=== PATIENT | female | born 1960 | race Hispanic/Latino ===

== ENCOUNTER 2017-06-15 08:00 | Outpatient (CLI) | payer OTHER, SELFPAY | END 2017-06-15 08:01 | disposition home or self-care (01) | LOC: BICMAMMO 08:00 | PROVIDERS: ATTEND Nurse Practitioner Family | DX: Z12.31 Encounter for screening mammogram for malignant neoplasm of breast (principal) | CPT/HCPCS: 77067; G0202 ==

== ENCOUNTER 2021-10-07 08:03 | Outpatient (CLI) | payer BC | END 2021-10-07 08:04 | disposition home or self-care (01) | LOC: BICMAMMO 08:03 | PROVIDERS: ATTEND Obstetrics & Gynecology | DX: Z12.31 Encounter for screening mammogram for malignant neoplasm of breast (principal); Z80.3 Family history of malignant neoplasm of breast | CPT/HCPCS: 77063; 77067 ==

== ENCOUNTER 2023-04-19 20:23 | Emergency (ER) | payer BC ==
[2023-04-19 20:57] LABS: #Eosinphils 0.1 thou/uL (0.0-0.7); #Monocytes 0.4 thou/uL (0.11-0.59); #Neutrophils 15.5 thou/uL (1.40-6.50); %Basophils 0.2 % (0.0-1.0); %Eosinophils 0.5 % (0.0-10.0); %Lymphocytes 4.6 % (21.0-51.0); %Monocytes 2.4 % (0.0-10.0); %Neutrophils 91.9 % (42.0-75.0); Hematocrit 42.1 % (36.0-47.0); Hemoglobin 14.8 g/dL (12.0-16.0); Mean Corpuscular HGB CONC 35.2 g/dL (32.0-36.0); Mean Corpuscular Hemoglobin 34.2 pg (27.0-31.0); Mean Corpuscular Volume 97.2 fl (78.0-98.0); Mean Platelet Volume 10.7 fL (7.4-10.4); Platelet Count 308 10x3/uL (130-400); RBC Distribution Width 11.5 % (11.5-14.5); Red Blood Cell (RBC) Count 4.33 mill/uL (4.20-5.40); White Blood Cell (WBC) Count 16.9 10x3/uL (4.8-10.8)
[2023-04-19 21:28] LABS: Troponin I Less than 0.010 ng/mL (< 0.028)
[2023-04-19 21:33] LABS: ALT (SGPT) 39 U/L (8-55); AST (SGOT) 37 U/L (5-34); Albumin 4.8 g/dL (3.4-4.8); Alkaline Phosphatase 92 U/L (40-110); Anion Gap 13 mmol/L (10-20); BUN (Urea Nitrogen) 10 mg/dL (9.8-20.1); Bilirubin, Total 0.4 mg/dL (0.2-1.2); Calc. Creatinine Clearance 0 mL/min (70-130); Calcium 9.5 mg/dL (7.8-10.44); Carbon Dioxide 27 mmol/L (23-31); Chloride 100 mmol/L (98-107); Estimated GFR 76; Globulin 2.9 g/dL (2.4-3.5); Glucose 202 mg/dL (80-115); Potassium 3.4 mmol/L (3.5-5.1); Protein, Total 7.7 g/dL (5.8-8.1); Sodium 137 mmol/L (136-145)
[2023-04-19 22:22] LABS: SARS-CoV-2 NAA Rapid Test Not Detected (NotDetected)
[2023-04-19 22:32] LABS: Bilirubin Negative (Negative); Blood, Urine Negative (Negative); Glucose, Urine (Dipstick) Negative (Negative); Ketone, Urine Negative (Negative); Leukocyte Small (Negative); Nitrite Negative (Negative); Protein, Urine (Dipstick) Negative (Neg-Trace); Urobilinogen 0.2 mg/dL (Less than 2); pH, Urine 7.5 (5.0-9.0)
[2023-04-19 22:41] LABS: Clarity Clear (Clear); Specific Gravity, Urine 1.005 (1.002-1.036)
[2023-04-19 22:42] LABS: Bacteria/HPF Rare-Few HPF (None Seen); CAUTI Indications for Culture Dysuria,urgency,freq; RBC/HPF 0-3 HPF (0-3); Squamous Epithelial 0-3 HPF (0-3); WBC/HPF 0-3 HPF (0-3)
[2023-04-19 22:44] LABS: Urine Culture Reflex No No
== END 2023-04-19 23:58 | disposition home or self-care (01) ==
LOC: ERS 20:23
DX: R00.2 Palpitations (principal); E86.0 Dehydration; E11.9 Type 2 diabetes mellitus without complications; E78.5 Hyperlipidemia, unspecified; I10 Essential (primary) hypertension; Z79.899 Other long term (current) drug therapy; Z20.822 Contact with and (suspected) exposure to COVID-19; Z79.84 Long term (current) use of oral hypoglycemic drugs
CPT/HCPCS: 71045; 80053; 81001; 83605; 83690; 83880; 84443; 84484; 85025; 85379; 87040; 93005; 96360; 96361

== ENCOUNTER 2023-12-05 20:14 | Inpatient (IN) | payer BC, SELFPAY ==
[~2023-12-05 20:14] MED LIST: Iopamidol 370 76% 100 ML VIAL ONE
[2023-12-05] MEDS ORDERED: Ondansetron PF 4 MG/2 ML Vial ONE (22:16)
[2023-12-05] MEDS ORDERED: Ketorolac Tromethamine 30 MG (1 mL) VIAL ONE (22:16)
[2023-12-05 22:44] LABS: #Basophils 0.03 10x3/uL (0.0-0.2); #Eosinphils Less than 0.03 10x3/uL (0.0-0.7); %Basophils 0.3 % (0.0-1.0); %Eosinophils 0.2 % (0.0-10.0); %Lymphocytes 12.4 % (21.0-51.0); %Neutrophils 81.7 % (42.0-75.0); Hematocrit 36.8 % (36.0-47.0); Hemoglobin 12.9 g/dL (12.0-16.0); Mean Corpuscular HGB CONC 35.1 g/dL (32.0-36.0); Mean Corpuscular Hemoglobin 33.6 pg (27.0-31.0); Mean Corpuscular Volume 95.8 fL (78.0-98.0); Mean Platelet Volume 10.7 fL (7.4-10.4); Platelet Count 280 10x3/uL (130-400); RBC Distribution Width 11.6 % (11.5-14.5); Red Blood Cell (RBC) Count 3.84 mill/uL (4.20-5.40)
[2023-12-05 23:02] LABS: ALT (SGPT) 522 U/L (8-55); AST (SGOT) 811 U/L (5-34); Albumin 3.9 g/dL (3.4-4.8); Alkaline Phosphatase 168 U/L (40-110); Anion Gap 16 mmol/L (10-20); BUN (Urea Nitrogen) 13 mg/dL (9.8-20.1); Bilirubin, Total 1.8 mg/dL (0.2-1.2); Calc. Creatinine Clearance 0 mL/min (70-130); Calcium 9.5 mg/dL (7.8-10.44); Carbon Dioxide 22 mmol/L (23-31); Chloride 103 mmol/L (98-107); Estimated GFR 93; Globulin 3.1 g/dL (2.4-3.5); Glucose 196 mg/dL (80-115); Lipase 30 U/L (8-78); Sodium 137 mmol/L (136-145)
[2023-12-05 23:07] LABS: Troponin I Less than 0.010 ng/mL (< 0.028)
[2023-12-06] MEDS ORDERED: Sodium Chloride 0.9% 100 ML ONE (00:22)
[2023-12-06] MEDS ORDERED: Piperacillin/Tazobactam 3.375 GM VIAL ONE (00:22)
[2023-12-06 02:03] LABS: Bilirubin Negative (Negative); Blood, Urine Negative (Negative); CAUTI Indications for Culture Fever or rigors; Clarity Clear (Clear); Glucose, Urine (Dipstick) Normal (Negative); Ketone, Urine Negative (Negative); Leukocyte 500 Leu/uL (Negative); Nitrite Negative (Negative); Protein, Urine (Dipstick) Negative (Neg-Trace); RBC/HPF 0-3 HPF (0-3); Renal Epithelial 0-3 HPF (None Seen); Specific Gravity, Urine 1.048 (1.002-1.036); Urobilinogen Normal mg/dL (Less than 2); WBC/HPF 21-50 HPF (0-3); pH, Urine 6.5 (5.0-9.0)
[2023-12-06 02:04] LABS: Bacteria/HPF 1+ HPF (None Seen); Urine Culture Reflex Yes Yes
[2023-12-06] MEDS: Sodium Chloride 0.9% 1,000 ML IV SCH (02:50)
[2023-12-06] MEDS ORDERED: Senokot S 8.6-50 MG TAB PO PRN (08:21)
[2023-12-06] MEDS ORDERED: Dextrose 5% in Water 1,000 ML IV PRN (08:30)
[2023-12-06] MEDS ORDERED: Glucagon 1 MG/ML KIT IM PRN (08:30)
[2023-12-06] MEDS ORDERED: Piperacillin/Tazobactam 3.375 GM in Sodium Chloride 0.9% 100 ML IVPB SCH (08:30)
[2023-12-06] MEDS ORDERED: Dextrose 50% Abboject 50 ML SYRINGE SLOW IVP PRN (08:30)
[2023-12-06] MEDS ORDERED: Ondansetron ODT 4 MG TAB PO PRN (08:33)
[2023-12-06 09:03] LABS: #Basophils Less than 0.03 10x3/uL (0.0-0.2); %Basophils 0.2 % (0.0-1.0); %Eosinophils 1.2 % (0.0-10.0); %Lymphocytes 14.2 % (21.0-51.0); %Monocytes 4.7 % (0.0-10.0); %Neutrophils 79.5 % (42.0-75.0); Hematocrit 35.1 % (36.0-47.0); Mean Corpuscular HGB CONC 34.2 g/dL (32.0-36.0); Mean Corpuscular Volume 99.4 fL (78.0-98.0); Mean Platelet Volume 10.9 fL (7.4-10.4); Platelet Count 258 10x3/uL (130-400); RBC Distribution Width 11.9 % (11.5-14.5); Red Blood Cell (RBC) Count 3.53 mill/uL (4.20-5.40)
[2023-12-06 09:10] LABS: Lactic Acid 1.3 mmol/L (0.5-2.2)
[2023-12-06 09:28] LABS: ALT (SGPT) 683 U/L (8-55); AST (SGOT) 754 U/L (5-34); Albumin 3.3 g/dL (3.4-4.8); Alkaline Phosphatase 187 U/L (40-110); Anion Gap 15 mmol/L (10-20); BUN (Urea Nitrogen) 11 mg/dL (9.8-20.1); Bilirubin, Total 3.2 mg/dL (0.2-1.2); Calc. Creatinine Clearance 100 mL/min (70-130); Calcium 8.6 mg/dL (7.8-10.44); Carbon Dioxide 20 mmol/L (23-31); Chloride 108 mmol/L (98-107); Estimated GFR 94; Glucose 161 mg/dL (80-115); Magnesium 1.8 mg/dL (1.6-2.6); Potassium 3.6 mmol/L (3.5-5.1); Protein, Total 6.3 g/dL (5.8-8.1); Sodium 139 mmol/L (136-145)
[2023-12-06] MEDS: Lactated Ringer's 1,000 ML IV SCH (09:47)
[2023-12-06] MEDS: Piperacillin/Tazobactam 3.375 GM in Sodium Chloride 0.9% 100 ML IVPB SCH (09:47)
[2023-12-06] MEDS: Famotidine/PF 20 mg/2ml Vial SLOW IVP SCH (09:48)
[2023-12-06] MEDS ORDERED: Ketorolac Tromethamine 30 MG (1 mL) VIAL IVP PRN (10:43)
[2023-12-06] MEDS: Magnesium 2 GM/50 ML(in water) 2 GM in Premix 1 BAG IVPB SCH (11:52)
[2023-12-06] MEDS ORDERED: Vancomycin 2 GM in Sodium Chloride 0.9% 500 ML IVPB SCH (19:45)
[2023-12-06] MEDS: Vancomycin (BATCH) 2 GM in Premix 1 BAG IVPB SCH (22:07)
[2023-12-07 05:16] LABS: #Basophils Less than 0.03 10x3/uL (0.0-0.2); %Basophils 0.4 % (0.0-1.0); %Eosinophils 4.9 % (0.0-10.0); %Lymphocytes 20.5 % (21.0-51.0); %Monocytes 4.9 % (0.0-10.0); %Neutrophils 68.9 % (42.0-75.0); Hematocrit 33.3 % (36.0-47.0); Hemoglobin 11.3 g/dL (12.0-16.0); Mean Corpuscular HGB CONC 33.9 g/dL (32.0-36.0); Mean Corpuscular Hemoglobin 33.5 pg (27.0-31.0); Mean Corpuscular Volume 98.8 fL (78.0-98.0); Mean Platelet Volume 10.9 fL (7.4-10.4); Platelet Count 239 10x3/uL (130-400); Red Blood Cell (RBC) Count 3.37 mill/uL (4.20-5.40)
[2023-12-07 05:34] LABS: Vancomycin, Random 26.7 ug/mL (See Comment)
[2023-12-07 05:36] LABS: Phosphorus 2.5 mg/dL (2.3-4.7)
[2023-12-07 05:43] LABS: ALT (SGPT) 560 U/L (8-55); AST (SGOT) 349 U/L (5-34); Alkaline Phosphatase 194 U/L (40-110); Anion Gap 11 mmol/L (10-20); BUN (Urea Nitrogen) 6 mg/dL (9.8-20.1); Bilirubin, Total 2.1 mg/dL (0.2-1.2); Calc. Creatinine Clearance 98 mL/min (70-130); Calcium 8.3 mg/dL (7.8-10.44); Carbon Dioxide 21 mmol/L (23-31); Chloride 114 mmol/L (98-107); Estimated GFR 93; Globulin 2.9 g/dL (2.4-3.5); Glucose 148 mg/dL (80-115); Potassium 3.4 mmol/L (3.5-5.1); Protein, Total 5.9 g/dL (5.8-8.1); Sodium 143 mmol/L (136-145)
[2023-12-07] MEDS: Vancomycin 1 GM in Premix 1 BAG IVPB SCH (09:22)
[2023-12-07] MEDS ORDERED: Iopamidol 30 ML ONE (10:18)
[2023-12-07] MEDS ORDERED: Indomethacin 50 MG SUPP ONE (10:19)
[2023-12-07] MEDS ORDERED: fentaNYL PF 100 MCG/2 ML SYRINGE ONE (10:26)
[2023-12-07] MEDS ORDERED: PROPOFOL 20 ML ONE (10:26)
[2023-12-07] MEDS ORDERED: Rocuronium Bromide 10 MG/ML (10ML VIAL) ONE (10:26)
[2023-12-07] MEDS ORDERED: Midazolam HCl 2 mg/2 ml Vial ONE (10:27)
[2023-12-07] MEDS ORDERED: Lidocaine 1% PF 5 ML VIAL ONE (11:02)
[2023-12-07] MEDS ORDERED: Ondansetron PF 4 MG/2 ML Vial ONE ×2 (11:18→12:58)
[2023-12-07] MEDS ORDERED: Dexamethasone 4 mg/ml Vial ONE (11:18)
[2023-12-07] MEDS ORDERED: Glucagon 1 MG/ML KIT ONE (11:31)
[2023-12-07] MEDS ORDERED: Ketamine In 0.9 % NaCl 50 MG/5 ML SYRINGE ONE (12:17)
[2023-12-07] MEDS ORDERED: fentaNYL 50 mcg/mL 1 mL Vial ONE (12:26)
[2023-12-07] MEDS ORDERED: SUGAMMADEX SODIUM 200 MG/2 ML VIAL ONE (12:52)
[2023-12-07] MEDS: Potassium Chloride 20 MEQ in Premix 1 BAG IVPB SCH (15:27)
[2023-12-07] MEDS: Potassium Chloride 20 MEQ TAB PO SCH (15:29)
[2023-12-07] MEDS: HYDROcodone/Acetaminophen 10/325 mg Tablet PO PRN (18:27)
[2023-12-08] MEDS: Insulin Regular, Human 100 UNIT/ML 10 ML VIAL SC PRN ×2 (00:05→06:01)
[2023-12-08] MEDS: Ondansetron PF 4 MG/2 ML Vial IVP PRN (02:32)
[2023-12-08 05:36] LABS: #Basophils Less than 0.03 10x3/uL (0.0-0.2); #Eosinphils Less than 0.03 10x3/uL (0.0-0.7); %Basophils 0.1 % (0.0-1.0); %Lymphocytes 6.3 % (21.0-51.0); %Monocytes 4.4 % (0.0-10.0); %Neutrophils 88.6 % (42.0-75.0); Hematocrit 40.4 % (36.0-47.0); Hemoglobin 13.6 g/dL (12.0-16.0); Mean Corpuscular HGB CONC 33.7 g/dL (32.0-36.0); Mean Corpuscular Hemoglobin 33.6 pg (27.0-31.0); Mean Corpuscular Volume 99.8 fL (78.0-98.0); Mean Platelet Volume 11.1 fL (7.4-10.4); Platelet Count 262 10x3/uL (130-400); RBC Distribution Width 12.3 % (11.5-14.5); Red Blood Cell (RBC) Count 4.05 mill/uL (4.20-5.40)
[2023-12-08 05:54] LABS: Vancomycin, Random 23.3 ug/mL (See Comment)
[2023-12-08 06:04] LABS: ALT (SGPT) 408 U/L (8-55); AST (SGOT) 172 U/L (5-34); Albumin 2.9 g/dL (3.4-4.8); Alkaline Phosphatase 177 U/L (40-110); Anion Gap 15 mmol/L (10-20); BUN (Urea Nitrogen) 15 mg/dL (9.8-20.1); Calc. Creatinine Clearance 49 mL/min (70-130); Calcium 8.2 mg/dL (7.8-10.44); Carbon Dioxide 18 mmol/L (23-31); Chloride 110 mmol/L (98-107); Estimated GFR 40; Globulin 2.9 g/dL (2.4-3.5); Glucose 245 mg/dL (80-115); Potassium 4.1 mmol/L (3.5-5.1); Protein, Total 5.8 g/dL (5.8-8.1); Sodium 139 mmol/L (136-145)
[2023-12-08] MEDS: Cefepime 2 GM in Sodium Chloride 0.9% 100 ML IVPB SCH (08:42)
[2023-12-08] MEDS: Lactated Ringer's 1,000 ML IV SCH ×2 (08:43→16:37)
[2023-12-08] MEDS: Bisacodyl 10 MG SUPP PR SCH (17:16)
[2023-12-08] MEDS: Ampicillin 2 GM in Sodium Chloride 0.9% 100 ML IVPB SCH (19:42)
[2023-12-08] MEDS ORDERED: Cefepime 1 GM in Sodium Chloride 0.9% 100 ML IVPB SCH (21:00)
[2023-12-09 03:47] LABS: Bacteria/HPF 1+ HPF (None Seen); Bilirubin Negative (Negative); Blood, Urine Trace (Negative); Clarity Turbid (Clear); Glucose, Urine (Dipstick) 100 mg/dL (Negative); Ketone, Urine Negative (Negative); Leukocyte 25 Leu/uL (Negative); Nitrite Negative (Negative); Protein, Urine (Dipstick) 70 mg/dL (Neg-Trace); Specific Gravity, Urine 1.013 (1.002-1.036); Transitional Epithelial 0-3 HPF (None Seen); Urobilinogen Normal mg/dL (Less than 2)
[2023-12-09 07:04] LABS: Hematocrit 35.5 % (36.0-47.0); Hemoglobin 12.3 g/dL (12.0-16.0); Mean Corpuscular HGB CONC 34.6 g/dL (32.0-36.0); Mean Corpuscular Hemoglobin 34.3 pg (27.0-31.0); Mean Corpuscular Volume 98.9 fL (78.0-98.0); Mean Platelet Volume 11.4 fL (7.4-10.4); Platelet Count 225 10x3/uL (130-400); RBC Distribution Width 12.6 % (11.5-14.5); Red Blood Cell (RBC) Count 3.59 mill/uL (4.20-5.40)
[2023-12-09 07:50] LABS: Anisocytosis SLIGHT = 6-15 cells HPF (0-5); Band 10 % (5-11); Burr Cells SLIGHT = 2-5 cells HPF (0-1); Monocytes 4 % (0-10); Neutrophil 86 % (42-75); Platelet Adequacy Comment Platelets Normal
[2023-12-09] MEDS ORDERED: Vancomycin 1 GM in Premix 1 BAG IVPB SCH (09:00)
[2023-12-09] MEDS: Bisacodyl 10 MG SUPP PR SCH ×2 (09:26→14:17)
[2023-12-09] MEDS: Famotidine 20 MG TAB PO SCH (09:27)
[2023-12-09 10:31] LABS: Anion Gap 16 mmol/L (10-20); BUN (Urea Nitrogen) 32 mg/dL (9.8-20.1); Calc. Creatinine Clearance 16 mL/min (70-130); Calcium 7.7 mg/dL (7.8-10.44); Carbon Dioxide 17 mmol/L (23-31); Chloride 106 mmol/L (98-107); Estimated GFR 10; Glucose 220 mg/dL (80-115); Potassium 4.3 mmol/L (3.5-5.1); Sodium 135 mmol/L (136-145)
[2023-12-09] MEDS ORDERED: GASTROGRAFIN 30 ML BOT ONE (11:37)
[2023-12-09] MEDS: Lactated Ringer's 1,000 ML IV SCH ×2 (13:16→13:18)
[2023-12-09] MEDS: Albumin 25% 25 GM (100 mL) BOT IVPB SCH (13:21)
[2023-12-09] MEDS ORDERED: Lactated Ringer's 1,000 ML IV SCH (16:00)
[2023-12-09 16:12] LABS: Vancomycin, Random 21.9 ug/mL (See Comment)
[2023-12-09 16:15] LABS: ALT (SGPT) 209 U/L (8-55); AST (SGOT) 59 U/L (5-34); Albumin 2.4 g/dL (3.4-4.8); Alkaline Phosphatase 128 U/L (40-110); Bilirubin, Direct 0.4 mg/dL (0.1-0.3); Bilirubin, Total 0.8 mg/dL (0.2-1.2); Protein, Total 5.7 g/dL (5.8-8.1)
[2023-12-09] MEDS: Sodium Chloride 0.9% 1,000 ML IV SCH (17:34)
[2023-12-09] MEDS ORDERED: Albumin 25% 25 GM (100 mL) BOT IVPB SCH (18:00)
[2023-12-09] MEDS: Racepinephrine 2.25% 0.5 ML NEB ONE (20:35)
[2023-12-10] MEDS: Dicyclomine 10 MG CAP PO SCH (00:01)
[2023-12-10] MEDS: Racepinephrine 2.25% 0.5 ML NEB NEB PRN (00:35)
[2023-12-10] MEDS ORDERED: fentaNYL 50 mcg/mL 1 mL Vial SLOW IVP PRN (00:35)
[2023-12-10] MEDS: Ipratropium/Albuterol 3 ML NEB ONE (01:01)
[2023-12-10 01:57] LABS: #Basophils 0.03 10x3/uL (0.0-0.2); #Eosinphils Less than 0.03 10x3/uL (0.0-0.7); %Basophils 0.1 % (0.0-1.0); %Lymphocytes 5.4 % (21.0-51.0); %Monocytes 3.7 % (0.0-10.0); %Neutrophils 89.1 % (42.0-75.0); Hematocrit 30.9 % (36.0-47.0); Hemoglobin 10.4 g/dL (12.0-16.0); Mean Corpuscular HGB CONC 33.7 g/dL (32.0-36.0); Mean Corpuscular Hemoglobin 33.2 pg (27.0-31.0); Mean Corpuscular Volume 98.7 fL (78.0-98.0); Mean Platelet Volume 11.2 fL (7.4-10.4); Platelet Count 179 10x3/uL (130-400); RBC Distribution Width 12.8 % (11.5-14.5); Red Blood Cell (RBC) Count 3.13 mill/uL (4.20-5.40)
[2023-12-10 01:58] LABS: #Basophils 0.03 10x3/uL (0.0-0.2); #Eosinphils Less than 0.03 10x3/uL (0.0-0.7); %Basophils 0.1 % (0.0-1.0); %Lymphocytes 5.2 % (21.0-51.0); %Monocytes 3.5 % (0.0-10.0); %Neutrophils 89.2 % (42.0-75.0); Hematocrit 30.3 % (36.0-47.0); Hemoglobin 10.2 g/dL (12.0-16.0); Mean Corpuscular HGB CONC 33.7 g/dL (32.0-36.0); Mean Corpuscular Hemoglobin 33.9 pg (27.0-31.0); Mean Corpuscular Volume 100.7 fL (78.0-98.0); Mean Platelet Volume 11.1 fL (7.4-10.4); Platelet Count 180 10x3/uL (130-400); RBC Distribution Width 12.8 % (11.5-14.5); Red Blood Cell (RBC) Count 3.01 mill/uL (4.20-5.40)
[2023-12-10 02:12] LABS: Lactic Acid 2.2 mmol/L (0.5-2.2)
[2023-12-10 02:16] LABS: ALT (SGPT) 145 U/L (8-55); AST (SGOT) 41 U/L (5-34); Albumin 2.5 g/dL (3.4-4.8); Alkaline Phosphatase 104 U/L (40-110); Anion Gap 20 mmol/L (10-20); BUN (Urea Nitrogen) 42 mg/dL (9.8-20.1); Bilirubin, Total 0.9 mg/dL (0.2-1.2); Calc. Creatinine Clearance 13 mL/min (70-130); Calcium 7.5 mg/dL (7.8-10.44); Carbon Dioxide 13 mmol/L (23-31); Chloride 104 mmol/L (98-107); Estimated GFR 8; Globulin 3.2 g/dL (2.4-3.5); Glucose 166 mg/dL (80-115); Potassium 3.7 mmol/L (3.5-5.1); Protein, Total 5.7 g/dL (5.8-8.1); Sodium 133 mmol/L (136-145)
[2023-12-10] MEDS: Furosemide 20 MG (2 mL) VIAL SLOW IVP SCH (02:30)
[2023-12-10 05:18] VITALS: BMI 34.9
[2023-12-10] MEDS: methylPREDNISolone Sod Succ/PF 125 MG/2 ML VIAL IVP SCH (06:34)
[2023-12-10] MEDS ORDERED: Furosemide 20 MG (2 mL) VIAL SLOW IVP SCH (09:00)
[2023-12-10] MEDS: Famotidine 20 MG TAB PO SCH (09:38)
[2023-12-10] MEDS: Bisacodyl 10 MG SUPP PR SCH (11:48)
[2023-12-10] MEDS: Ampicillin 2 GM in Sodium Chloride 0.9% 100 ML IVPB SCH (12:06)
[2023-12-10] MEDS: Sodium Bicarbonate 150 MEQ in Dextrose 5% in Water 1,000 ML IV SCH (12:47)
[2023-12-10 19:32] LABS: Anion Gap 23 mmol/L (10-20); BUN (Urea Nitrogen) 49 mg/dL (9.8-20.1); Calc. Creatinine Clearance 11 mL/min (70-130); Calcium 7.3 mg/dL (7.8-10.44); Carbon Dioxide 13 mmol/L (23-31); Chloride 105 mmol/L (98-107); Estimated GFR 7; Glucose 178 mg/dL (80-115); Sodium 136 mmol/L (136-145)
[2023-12-10] MEDS: Ipratropium/Albuterol 3 ML NEB NEB PRN (21:45)
[2023-12-11 05:01] LABS: Actual Bicarbonate (HCO3v) 21.8 mEq/L (22-28); Chloride (VBG) 100 mmol/L (98-106); Hematocrit-VBG 31 % (36.0-47.0); Hemoglobin (Hb) 10.5 g/dL (11.7-16.1); Sodium 137 mmol/L (133-146); pH (venous) 7.378 (7.32-7.43)
[2023-12-11 05:31] LABS: Hematocrit 27.8 % (36.0-47.0); Hemoglobin 9.5 g/dL (12.0-16.0); Mean Corpuscular HGB CONC 34.2 g/dL (32.0-36.0); Mean Corpuscular Hemoglobin 33.5 pg (27.0-31.0); Mean Corpuscular Volume 97.9 fL (78.0-98.0); Mean Platelet Volume 11.2 fL (7.4-10.4); Platelet Count 184 10x3/uL (130-400); Red Blood Cell (RBC) Count 2.84 mill/uL (4.20-5.40)
[2023-12-11 05:55] LABS: Anion Gap 20 mmol/L (10-20); BUN (Urea Nitrogen) 55 mg/dL (9.8-20.1); Calc. Creatinine Clearance 10 mL/min (70-130); Calcium 7.6 mg/dL (7.8-10.44); Carbon Dioxide 20 mmol/L (23-31); Chloride 102 mmol/L (98-107); Estimated GFR 6; Glucose 143 mg/dL (80-115); Lipase 30 U/L (8-78); Potassium 3.8 mmol/L (3.5-5.1); Sodium 138 mmol/L (136-145)
[2023-12-11 06:07] LABS: Band 5 % (5-11); Dohle Bodies SLIGHT; Lymphocytes 4 % (21-51); Monocytes 3 % (0-10); Neutrophil 88 % (42-75); Platelet Adequacy Comment Platelets Normal; Polychromasia SLIGHT = 2-3 cells HPF (0-2); Vacuoles SLIGHT
[2023-12-11] MEDS: Sodium Chloride 0.9% 1,000 ML IV SCH (09:00)
[2023-12-11] MEDS: Pantoprazole 40 MG VIAL IVP SCH (12:14)
[2023-12-12 04:02] LABS: #Basophils 0.06 10x3/uL (0.0-0.2); %Basophils 0.2 % (0.0-1.0); %Eosinophils 0.2 % (0.0-10.0); %Lymphocytes 3.6 % (21.0-51.0); %Monocytes 4.4 % (0.0-10.0); %Neutrophils 90.6 % (42.0-75.0); Hematocrit 29.9 % (36.0-47.0); Hemoglobin 10.1 g/dL (12.0-16.0); Mean Corpuscular HGB CONC 33.8 g/dL (32.0-36.0); Mean Corpuscular Hemoglobin 32.8 pg (27.0-31.0); Mean Corpuscular Volume 97.1 fL (78.0-98.0); Mean Platelet Volume 11.2 fL (7.4-10.4); Platelet Count 220 10x3/uL (130-400); RBC Distribution Width 13.3 % (11.5-14.5); Red Blood Cell (RBC) Count 3.08 mill/uL (4.20-5.40)
[2023-12-12 04:35] LABS: Anion Gap 26 mmol/L (10-20); BUN (Urea Nitrogen) 68 mg/dL (9.8-20.1); Calc. Creatinine Clearance 11 mL/min (70-130); Calcium 7.7 mg/dL (7.8-10.44); Carbon Dioxide 15 mmol/L (23-31); Chloride 106 mmol/L (98-107); Estimated GFR 6; Glucose 116 mg/dL (80-115); Potassium 3.8 mmol/L (3.5-5.1); Sodium 143 mmol/L (136-145)
[2023-12-12 05:20] LABS: ALT (SGPT) 73 U/L (8-55); AST (SGOT) 21 U/L (5-34); Albumin 2.1 g/dL (3.4-4.8); Alkaline Phosphatase 108 U/L (40-110); Bilirubin, Direct 0.4 mg/dL (0.1-0.3); Bilirubin, Total 0.7 mg/dL (0.2-1.2); Protein, Total 5.9 g/dL (5.8-8.1)
[2023-12-12] MEDS ORDERED: GASTROGRAFIN 30 ML BOT ONE (07:09)
[2023-12-12] MEDS: Pantoprazole 40 MG VIAL IVP SCH (08:05)
[2023-12-12] MEDS: Albumin 25% 25 GM (100 mL) BOT IVPB SCH (10:31)
[2023-12-13 06:14] LABS: #Basophils 0.04 10x3/uL (0.0-0.2); %Basophils 0.2 % (0.0-1.0); %Eosinophils 0.4 % (0.0-10.0); %Lymphocytes 3.6 % (21.0-51.0); %Monocytes 4.3 % (0.0-10.0); %Neutrophils 88.8 % (42.0-75.0); Hematocrit 26.3 % (36.0-47.0); Hemoglobin 9.2 g/dL (12.0-16.0); Mean Corpuscular Hemoglobin 33.6 pg (27.0-31.0); Mean Platelet Volume 11.2 fL (7.4-10.4); Platelet Count 231 10x3/uL (130-400); RBC Distribution Width 13.5 % (11.5-14.5); Red Blood Cell (RBC) Count 2.74 mill/uL (4.20-5.40)
[2023-12-13 06:34] LABS: Anion Gap 22 mmol/L (10-20); BUN (Urea Nitrogen) 71 mg/dL (9.8-20.1); Calc. Creatinine Clearance 13 mL/min (70-130); Calcium 7.6 mg/dL (7.8-10.44); Carbon Dioxide 16 mmol/L (23-31); Chloride 106 mmol/L (98-107); Estimated GFR 7; Glucose 214 mg/dL (80-115); Potassium 3.2 mmol/L (3.5-5.1); Sodium 141 mmol/L (136-145)
[2023-12-13] MEDS: Potassium Chloride 20 MEQ in Premix 1 BAG IVPB SCH (11:07)
[2023-12-13 14:07] VITALS: BMI 37.0
[2023-12-13] MEDS: Sodium Chloride 0.9% 100 ML ONE (14:55)
[2023-12-13] MEDS: Bisacodyl 10 MG SUPP PR SCH (14:56)
[2023-12-13 15:53] LABS: Anion Gap 18 mmol/L (10-20); BUN (Urea Nitrogen) 67 mg/dL (9.8-20.1); Calc. Creatinine Clearance 14 mL/min (70-130); Calcium 7.6 mg/dL (7.8-10.44); Carbon Dioxide 17 mmol/L (23-31); Chloride 109 mmol/L (98-107); Estimated GFR 8; Glucose 204 mg/dL (80-115); Potassium 3.3 mmol/L (3.5-5.1); Sodium 141 mmol/L (136-145)
[2023-12-14] MEDS: Ampicillin 2 GM in Sodium Chloride 0.9% 100 ML IVPB SCH ×2 (05:14→13:49)
[2023-12-14 05:38] LABS: Hematocrit 26.5 % (36.0-47.0); Hemoglobin 8.9 g/dL (12.0-16.0); Mean Corpuscular HGB CONC 33.6 g/dL (32.0-36.0); Mean Corpuscular Hemoglobin 33.5 pg (27.0-31.0); Mean Corpuscular Volume 99.6 fL (78.0-98.0); Mean Platelet Volume 10.6 fL (7.4-10.4); Platelet Count 236 10x3/uL (130-400); RBC Distribution Width 13.7 % (11.5-14.5); Red Blood Cell (RBC) Count 2.66 mill/uL (4.20-5.40)
[2023-12-14 05:45] LABS: Anion Gap 17 mmol/L (10-20); BUN (Urea Nitrogen) 60 mg/dL (9.8-20.1); Calc. Creatinine Clearance 17 mL/min (70-130); Calcium 7.7 mg/dL (7.8-10.44); Carbon Dioxide 18 mmol/L (23-31); Chloride 108 mmol/L (98-107); Estimated GFR 10; Glucose 167 mg/dL (80-115); Sodium 140 mmol/L (136-145)
[2023-12-14 06:34] LABS: Band 24 % (5-11); Hypochromia SLIGHT = 6-15 cells HPF (0-5); Lymphocytes 3 % (21-51); Monocytes 2 % (0-10); Neutrophil 71 % (42-75); Platelet Adequacy Comment Platelets Normal; Polychromasia SLIGHT = 2-3 cells HPF (0-2)
[2023-12-14] MEDS: Potassium Chloride 20 MEQ in Premix 1 BAG IVPB SCH ×2 (08:57→15:00)
[2023-12-14] MEDS: Potassium Bicarbonate/Cit Ac 20 MEQ TAB PO SCH (08:58)
[2023-12-14] MEDS: Bisacodyl 10 MG SUPP PR SCH (08:58)
[2023-12-15 04:52] LABS: #Basophils 0.04 10x3/uL (0.0-0.2); %Basophils 0.2 % (0.0-1.0); %Eosinophils 1.2 % (0.0-10.0); %Lymphocytes 5.5 % (21.0-51.0); %Monocytes 5.1 % (0.0-10.0); %Neutrophils 84.5 % (42.0-75.0); Hematocrit 27.8 % (36.0-47.0); Hemoglobin 9.3 g/dL (12.0-16.0); Mean Corpuscular HGB CONC 33.5 g/dL (32.0-36.0); Mean Corpuscular Hemoglobin 33.6 pg (27.0-31.0); Mean Corpuscular Volume 100.4 fL (78.0-98.0); Mean Platelet Volume 10.7 fL (7.4-10.4); Platelet Count 261 10x3/uL (130-400); RBC Distribution Width 13.7 % (11.5-14.5); Red Blood Cell (RBC) Count 2.77 mill/uL (4.20-5.40)
[2023-12-15 05:10] LABS: Anion Gap 17 mmol/L (10-20); BUN (Urea Nitrogen) 48 mg/dL (9.8-20.1); Calc. Creatinine Clearance 22 mL/min (70-130); Calcium 7.8 mg/dL (7.8-10.44); Carbon Dioxide 16 mmol/L (23-31); Chloride 112 mmol/L (98-107); Estimated GFR 14; Glucose 179 mg/dL (80-115); Potassium 3.5 mmol/L (3.5-5.1); Sodium 141 mmol/L (136-145)
[2023-12-15] MEDS: Amlodipine 10 MG TAB PO SCH (08:34)
[2023-12-15] MEDS: Pantoprazole DR 40 MG TAB PO SCH (08:35)
[2023-12-15] MEDS: Labetalol HCl 100 MG/20 ML VIAL SLOW IVP PRN (10:52)
[2023-12-15] MEDS: Atorvastatin Calcium 40 MG TAB PO SCH (21:03)
[2023-12-15] MEDS: Sodium Bicarbonate Tab 325 MG TAB PO SCH (21:03)
[2023-12-16 05:46] LABS: #Basophils 0.03 10x3/uL (0.0-0.2); %Basophils 0.2 % (0.0-1.0); %Eosinophils 1.5 % (0.0-10.0); %Lymphocytes 6.1 % (21.0-51.0); %Monocytes 3.8 % (0.0-10.0); %Neutrophils 85.4 % (42.0-75.0); Hematocrit 27.1 % (36.0-47.0); Mean Corpuscular HGB CONC 33.2 g/dL (32.0-36.0); Mean Corpuscular Hemoglobin 34.2 pg (27.0-31.0); Mean Platelet Volume 11.3 fL (7.4-10.4); Platelet Count 276 10x3/uL (130-400); RBC Distribution Width 13.9 % (11.5-14.5); Red Blood Cell (RBC) Count 2.63 mill/uL (4.20-5.40)
[2023-12-16 05:55] LABS: Hemoglobin A1c 7.7 % (4.0-6.0)
[2023-12-16 06:04] LABS: Anion Gap 21 mmol/L (10-20); BUN (Urea Nitrogen) 42 mg/dL (9.8-20.1); Calc. Creatinine Clearance 28 mL/min (70-130); Calcium 7.5 mg/dL (7.8-10.44); Carbon Dioxide 16 mmol/L (23-31); Chloride 117 mmol/L (98-107); Estimated GFR 18; Glucose 182 mg/dL (80-115); Potassium 3.5 mmol/L (3.5-5.1); Sodium 150 mmol/L (136-145)
[2023-12-16] MEDS: Potassium Chloride 20 MEQ TAB PO SCH (09:55)
[2023-12-16] MEDS: Dextrose 5% in Water 1,000 ML IV SCH (09:57)
[2023-12-16 11:22] LABS: Magnesium 1.6 mg/dL (1.6-2.6)
[2023-12-16 15:45] LABS: Sodium 146 mmol/L (136-145)
[2023-12-16 23:29] LABS: Sodium 145 mmol/L (136-145)
[2023-12-17 05:21] LABS: Anion Gap 17 mmol/L (10-20); BUN (Urea Nitrogen) 33 mg/dL (9.8-20.1); Calc. Creatinine Clearance 35 mL/min (70-130); Calcium 7.5 mg/dL (7.8-10.44); Carbon Dioxide 18 mmol/L (23-31); Chloride 113 mmol/L (98-107); Estimated GFR 24; Glucose 216 mg/dL (80-115); Potassium 2.7 mmol/L (3.5-5.1); Sodium 145 mmol/L (136-145)
[2023-12-17 05:29] LABS: #Basophils 0.06 10x3/uL (0.0-0.2); %Basophils 0.3 % (0.0-1.0); %Eosinophils 0.8 % (0.0-10.0); %Lymphocytes 2.4 % (21.0-51.0); %Monocytes 1.7 % (0.0-10.0); %Neutrophils 93.3 % (42.0-75.0); Hematocrit 29.5 % (36.0-47.0); Mean Corpuscular HGB CONC 33.9 g/dL (32.0-36.0); Mean Corpuscular Hemoglobin 32.7 pg (27.0-31.0); Mean Corpuscular Volume 96.4 fL (78.0-98.0); Platelet Count 324 10x3/uL (130-400); RBC Distribution Width 13.3 % (11.5-14.5); Red Blood Cell (RBC) Count 3.06 mill/uL (4.20-5.40)
[2023-12-17] MEDS: Potassium Chloride 20 MEQ TAB PO SCH ×2 (06:20→10:09)
[2023-12-17 10:57] LABS: Anion Gap 20 mmol/L (10-20); BUN (Urea Nitrogen) 32 mg/dL (9.8-20.1); Calc. Creatinine Clearance 36 mL/min (70-130); Calcium 7.4 mg/dL (7.8-10.44); Carbon Dioxide 12 mmol/L (23-31); Chloride 113 mmol/L (98-107); Estimated GFR 25; Glucose 198 mg/dL (80-115); Potassium 4.4 mmol/L (3.5-5.1); Sodium 141 mmol/L (136-145)
[2023-12-17 18:05] LABS: Potassium 2.8 mmol/L (3.5-5.1)
[2023-12-17] MEDS: Hydrochlorothiazide 25 MG TAB PO SCH (18:35)
[2023-12-17] MEDS ORDERED: Electrolyte Replacement Protocol 1 EACH FS SCH (22:00)
[2023-12-18] MEDS: Potassium Chloride 20 MEQ TAB PO SCH ×2 (00:43→13:14)
[2023-12-18 05:52] LABS: Anion Gap 15 mmol/L (10-20); BUN (Urea Nitrogen) 28 mg/dL (9.8-20.1); Calc. Creatinine Clearance 36 mL/min (70-130); Calcium 7.6 mg/dL (7.8-10.44); Carbon Dioxide 21 mmol/L (23-31); Chloride 111 mmol/L (98-107); Estimated GFR 26; Glucose 215 mg/dL (80-115); Potassium 2.7 mmol/L (3.5-5.1); Sodium 144 mmol/L (136-145)
[2023-12-18 05:57] LABS: #Basophils 0.03 10x3/uL (0.0-0.2); %Basophils 0.2 % (0.0-1.0); %Eosinophils 1.8 % (0.0-10.0); %Lymphocytes 7.2 % (21.0-51.0); %Monocytes 3.5 % (0.0-10.0); %Neutrophils 86.1 % (42.0-75.0); Hematocrit 28.6 % (36.0-47.0); Hemoglobin 9.6 g/dL (12.0-16.0); Mean Corpuscular HGB CONC 33.6 g/dL (32.0-36.0); Mean Corpuscular Hemoglobin 33.4 pg (27.0-31.0); Mean Corpuscular Volume 99.7 fL (78.0-98.0); Mean Platelet Volume 11.1 fL (7.4-10.4); Platelet Count 324 10x3/uL (130-400); RBC Distribution Width 13.2 % (11.5-14.5); Red Blood Cell (RBC) Count 2.87 mill/uL (4.20-5.40)
[2023-12-18] MEDS ORDERED: Hydrochlorothiazide 25 MG TAB PO SCH (09:00)
[2023-12-18] MEDS: Ampicillin 2 GM in Sodium Chloride 0.9% 100 ML IVPB SCH (09:31)
[2023-12-18 21:25] LABS: Anion Gap 19 mmol/L (10-20); BUN (Urea Nitrogen) 25 mg/dL (9.8-20.1); Calc. Creatinine Clearance 38 mL/min (70-130); Calcium 7.7 mg/dL (7.8-10.44); Carbon Dioxide 16 mmol/L (23-31); Chloride 110 mmol/L (98-107); Estimated GFR 27; Glucose 277 mg/dL (80-115); Potassium 3.6 mmol/L (3.5-5.1); Sodium 141 mmol/L (136-145)
[2023-12-19 05:07] LABS: #Basophils Less than 0.03 10x3/uL (0.0-0.2); %Basophils 0.1 % (0.0-1.0); %Eosinophils 1.8 % (0.0-10.0); %Lymphocytes 7.9 % (21.0-51.0); %Monocytes 3.8 % (0.0-10.0); %Neutrophils 85.3 % (42.0-75.0); Hematocrit 27.7 % (36.0-47.0); Hemoglobin 9.2 g/dL (12.0-16.0); Mean Corpuscular HGB CONC 33.2 g/dL (32.0-36.0); Mean Corpuscular Hemoglobin 33.1 pg (27.0-31.0); Mean Corpuscular Volume 99.6 fL (78.0-98.0); Mean Platelet Volume 11.1 fL (7.4-10.4); Platelet Count 358 10x3/uL (130-400); Red Blood Cell (RBC) Count 2.78 mill/uL (4.20-5.40)
[2023-12-19 05:29] LABS: Anion Gap 19 mmol/L (10-20); BUN (Urea Nitrogen) 23 mg/dL (9.8-20.1); Calc. Creatinine Clearance 42 mL/min (70-130); Calcium 7.7 mg/dL (7.8-10.44); Carbon Dioxide 19 mmol/L (23-31); Chloride 110 mmol/L (98-107); Estimated GFR 30; Glucose 193 mg/dL (80-115); Sodium 145 mmol/L (136-145)
[2023-12-19] MEDS: Potassium Chloride 20 MEQ TAB PO SCH ×2 (06:18→09:17)
[2023-12-19 09:00] LABS: CRP,High Sensitivity (Inhouse) 3.97 mg/dL (< or = 0.5)
[2023-12-19] MEDS: hydrALAZINE 10 MG TAB PO SCH (09:00)
[2023-12-19 13:42] LABS: Potassium 3.9 mmol/L (3.5-5.1)
[2023-12-19 16:50] VITALS: BP 142/79; TEMP 97.5
== END 2023-12-19 17:00 | disposition home or self-care (01) | DRG 417 ==
LOC: ERS 20:14 → SJJU 12-06 02:09 → OBSVTOIN 12-06 08:20 → 2NO 12-09 15:32 → IMCU/EMU 12-09 18:50 → MSONC 12-13 14:57
PROVIDERS: ADMIT Internal Medicine; ATTEND Internal Medicine
PROC: 0FT44ZZ Resection of Gallbladder, Percutaneous Endoscopic Approach (ICD-10-PCS; principal; 2023-12-07)
PROC: 0FC98ZZ Extirpation of Matter from Common Bile Duct, Via Natural or Artificial Opening Endoscopic (ICD-10-PCS; 2023-12-07)
DX: K80.66 Calculus of gallbladder and bile duct with acute and chronic cholecystitis without obstruction (principal); K85.90 Acute pancreatitis without necrosis or infection, unspecified; N00.9 Acute nephritic syndrome with unspecified morphologic changes; K91.89 Other postprocedural complications and disorders of digestive system; K56.7 Ileus, unspecified; E87.0 Hyperosmolality and hypernatremia; N17.9 Acute kidney failure, unspecified; E87.20 Acidosis, unspecified; R78.81 Bacteremia; J98.11 Atelectasis; J90 Pleural effusion, not elsewhere classified; N18.5 Chronic kidney disease, stage 5; E87.1 Hypo-osmolality and hyponatremia; K83.09 Other cholangitis; E87.6 Hypokalemia; E78.5 Hyperlipidemia, unspecified; I12.9 Hypertensive chronic kidney disease with stage 1 through stage 4 chronic kidney disease, or unspecified chronic kidney disease; E11.22 Type 2 diabetes mellitus with diabetic chronic kidney disease; R82.71 Bacteriuria; D72.829 Elevated white blood cell count, unspecified; K59.00 Constipation, unspecified; R79.89 Other specified abnormal findings of blood chemistry; E83.51 Hypocalcemia; Z79.84 Long term (current) use of oral hypoglycemic drugs; Z79.899 Other long term (current) drug therapy; B95.2 Enterococcus as the cause of diseases classified elsewhere
CPT/HCPCS: 36415; 36416; 71045; 74018; 74176; 74177; 74330; 76705; 80048; 80053; 80076; 80202; 81001; 82805; 83036; 83605; 83690; 83735; 83880; 84100; 84484; 85025; 86141; 87040; 87077; 87086; 87149; 87186; 88304; 89190; 93005; 93010; 94640; 96365; 96375; C1713; C9113; J0290; J0692; J1100; J1611; J1815; J1885; J2250; J2405; J2543; J2704; J3010; J3370; J3370-JW; J3475; J3480; J3490; J7050; J7070; J7120; J7620; P9047; Q9963; Q9967; S0028